=== PATIENT | male | born 1955 | race Caucasian/White ===

== ENCOUNTER 2016-04-15 14:51 | Inpatient (IN) | payer OTHER ==
[~2016-04-15] VITALS: Ht 190.5 cm; Wt 129.7 kg
[~2016-04-15 14:51] MED LIST: CELE20TA PO; FISH100020 PO; METF500 PO; MULTTAB67 PO; NOVO7030P2 SQ; POTA20TA5 PO; VITA10002 PO; VITA10007 PO; ZETI10TA5 PO; glucometer
[2016-04-15 14:53] VITALS: BP 134/74; PULSE 54; RESP 16; TEMP 97.8; O2SAT 97
[2016-04-15] MEDS ORDERED: SODIUM CHLORIDE 0.9% FLUSH 5 ML FLUSH IVF PRN (16:00)
[2016-04-15] MEDS ORDERED: ONDANSETRON HCL 4 MG/2 ML VIAL IVP ONE (16:00)
[2016-04-15] MEDS ORDERED: MORPHINE SULFATE 4 MG/ML INJ IV PUSH ONE (16:00)
--- NOTE | 2016-04-15 16:02 | PD ---
HPI . Right flank pain Chief Complaint: Flank/Kidney Pain Time Seen by Provider: 15:54 Travel History International Travel<30 days: No Contact w/Intl Traveler<30days: No Traveled to known affect area: No History of Present Illness HPI Patient presents with a one month history of right flank pain. He states that he saw his doctor for about 8-10 days ago probably had a kidney stone. He states that he was discharged from the doctor's office on amoxicillin. Patient also reports hematuria for the last 10 days. He states that his pain became acutely worse during the last 12 hours. He reports nausea, diaphoresis and continued hematuria. He denies associated fever. PFSH Past Medical History Arthritis: Yes (hands) Depression: Yes Cancer: Yes (MELANOMA 2004 toes) Cardiovascular Problems: No Diabetes: Yes Patient Takes Glucophage: No Diverticulitis: Yes Endocrine: Yes Genitourinary: No Hiatal Hernia: Yes Immune Disorder: No Implanted Vascular Access Dvce: Yes Musculoskeletal: Yes Neurologic: Yes (SKULL FRACTURE) Psychiatric: Yes Reproductive: No Respiratory: Yes Sleep Apnea: Yes (uses cpap at home) Thyroid Disease: No Past Surgical History Abdominal Surgery: Yes (HERNIA X3) Body Medical Devices: fully repaired knee 2013 Genitourinary Surgery: Yes (VASECTOMY) Tonsillectomy: Yes (ADENOIDS) Other Surgery: Yes Social History Alcohol Use: No Tobacco Use: No Substance Use: No Allergies-Medications (Allergen,Severity, Reaction): Coded Allergies: No Known Allergies (Unverified , 04/15/16) Reported Meds & Prescriptions Reported Meds & Active Scripts Active Phenergan (Promethazine HCl) 25 Mg Tab 25 Mg PO Q6H PRN Flomax (Tamsulosin HCl) 0.4 Mg Cap 0.4 Mg PO HS Percocet (Oxycodone-Acetaminophen) 5-325 mg Tab 1-2 Tab PO Q4H PRN [glucometer] Potassium Chloride Microencaps 20 Meq Tab 20 Meq PO Q12HR Glucophage (Metformin HCl) 500 Mg Tab 1,000 Mg PO BIDPC Novolin 70-30 Inj (Insulin Human Isoph/Insulin Regular) 1,000 Unit/10 Ml Vial 12 Units SQ BID@,17 Zetia (Ezetimibe) 10 Mg Tab 10 Mg PO DAILY Reported Fish Oil 1000 mg ([place]-3 Fatty Acids) 1 Cap Cap 2,000 Mg PO HS Vitamin B-12 (Cyanocobalamin) 1,000 Mcg Tab 1,000 Mcg PO HS Vitamin C (Ascorbic Acid) 1,000 Mg Tab 1,000 Mg PO HS Multiple Vitamin 1 Tab 1 Tab PO DAILY Celexa (Citalopram Hydrobromide) 20 Mg Tab 20 Mg PO HS Review of Systems Except as stated in HPI: all other systems reviewed are Neg General / Constitutional: Positive: Other (diaphoresis), No: Fever Gastrointestinal: Positive: Nausea Genitourinary: Positive: Hematuria, Flank Pain Physical Exam Narrative GENERAL: Patient is sitting on the side of the bed leaning to his left supported on the bedside table. He has obvious pain with movement. SKIN: Warm and dry. HEAD: Atraumatic. Normocephalic. EYES: Pupils equal and round. ENT: No nasal bleeding or discharge. Mucous membranes pink and moist. NECK: Trachea midline. CARDIOVASCULAR: Regular rate and rhythm. RESPIRATORY: No accessory muscle use. GASTROINTESTINAL: Abdomen soft. Obese. Diffuse right-sided tenderness. Nondistended. MUSCULOSKELETAL: No obvious deformities. No edema. Tenderness to percussion in the right CVA area. NEUROLOGICAL: Awake and alert. No obvious cranial nerve deficits. Motor grossly within normal limits. Normal speech. PSYCHIATRIC: Appropriate mood and affect; insight and judgment normal. Data Data Last Documented VS Vital Signs Date Time Temp Pulse Resp B/P Pulse Ox O2 Delivery O2 Flow Rate FiO2 04/15/16 16:18 53 18 120/73 99 Room Air 04/15/16 14:53 97.8 Orders Basic Metabolic Panel (Bmp) (04/15/16 15:55) Complete Blood Count With Diff (04/15/16 15:55) Ua Includes Microscopic (04/15/16 15:55) Ct Abd/Pel W/O Iv Contrast (04/15/16 15:55) Ondansetron Inj (Zofran Inj) (04/15/16 16:00) Sodium Chloride 0.9% Flush (Ns Flush) (04/15/16 16:00) Morphine Inj (Morphine Inj) (04/15/16 16:00) Sodium Chlor 0.9% 1000 Ml Inj (Ns 1000 M (04/15/16 17:45) Sodium Chlor 0.9% 1000 Ml Inj (Ns 1000 M (04/15/16 17:45) Ketorolac Inj (Toradol Inj) (04/15/16 17:45) Tamsulosin (Flomax) (04/15/16 17:45) Hydromorphone Pf Inj (Dilaudid Pf Inj) (04/15/16 17:45) Consult Urology (04/15/16 ) Admit To Inpatient (04/15/16 ) Code Status (04/15/16 18:20) Vital Signs (Adult) Q4H (04/15/16 18:20) Activity Oob With Assistance (04/15/16 18:20) Diet Heart Healthy (04/15/16 Dinner) Sodium Chloride 0.9% Flush (Ns Flush) (04/15/16 18:30) Sodium Chloride 0.9% Flush (Ns Flush) (04/15/16 21:00) Acetaminophen (Tylenol) (04/15/16 18:30) Bisacodyl Supp (Dulcolax Supp) (04/15/16 18:30) Magnesium Hydroxide Liq (Milk Of Magnesi (04/15/16 18:30) Chest, Single Ap (04/15/16 18:20) Electrocardiogram (04/15/16 18:20) Pt Request For Service (04/15/16 18:20) Scd Bilateral/Knee High TERI.BID (04/15/16 18:20) Naloxone Inj (Narcan Inj) (04/15/16 18:30) Inpatient Certification (04/15/16 ) Labs Laboratory Tests Test 04/15/16 04/15/16 16:06 16:47 White Blood Count 12.4 TH/MM3 Red Blood Count 4.36 MIL/MM3 Hemoglobin 13.9 GM/DL Hematocrit 38.8 % Mean Corpuscular Volume 89.0 FL Mean Corpuscular Hemoglobin 31.9 PG Mean Corpuscular Hemoglobin 35.8 % Concent Red Cell Distribution Width 13.2 % Platelet Count 189 TH/MM3 Mean Platelet Volume 7.6 FL Neutrophils (%) (Auto) 72.8 % Lymphocytes (%) (Auto) 16.9 % Monocytes (%) (Auto) 7.1 % Eosinophils (%) (Auto) 2.5 % Basophils (%) (Auto) 0.7 % Neutrophils # (Auto) 9.0 TH/MM3 Lymphocytes # (Auto) 2.1 TH/MM3 Monocytes # (Auto) 0.9 TH/MM3 Eosinophils # (Auto) 0.3 TH/MM3 Basophils # (Auto) 0.1 TH/MM3 CBC Comment DIFF FINAL Differential Comment Sodium Level 140 MEQ/L Potassium Level 4.3 MEQ/L Chloride Level 108 MEQ/L Carbon Dioxide Level 24.6 MEQ/L Anion Gap 7 MEQ/L Blood Urea Nitrogen 29 MG/DL Creatinine 1.48 MG/DL Estimat Glomerular Filtration 48 ML/MIN Rate Random Glucose 91 MG/DL Calcium Level 9.1 MG/DL Urine Color YELLOW Urine Turbidity CLEAR Urine pH 7.0 Urine Specific [place] 1.016 Urine Protein NEG mg/dL Urine Glucose (UA) NEG mg/dL Urine Ketones NEG mg/dL Urine Occult Blood MOD Urine Nitrite NEG Urine Bilirubin NEG Urine Urobilinogen LESS THAN 2.0 MG/DL Urine Leukocyte Esterase SMALL Urine RBC 118 /hpf Urine WBC 10 /hpf Urine Squamous Epithelial <1 /hpf Cells Urine Mucus FEW /lpf Microscopic Urinalysis Comment MDM Medical Decision Making Medical Screen Exam Complete: Yes Emergency Medical Condition: Yes Medical Record Reviewed: Yes (patient was seen here a couple months ago with new onset diabetes. He was hospitalized for a couple of days.) Differential Diagnosis Differential diagnosis of flank pain includes but is not limited to kidney stone , pyelonephritis, musculoskeletal pain, PE Narrative Course Patient presents for the evaluation of right flank pain and hematuria. The patient is noted to have significant pain with movement. CBC & BMP Diagram 04/15/16 16:06 Last Impressions Abdomen/Pelvis CT 04/15/16 1555 Signed Impressions: Service Date/Time: Friday, April 15, 2016 16:58 - CONCLUSION: 1. Cholelithiasis. 2. Diverticulosis. 3. There are bilateral proximal ureteral stones present with mild proximal hydroureter and hydronephrosis identified. On the right there is mild associated perinephric stranding. Cl Owusu MD The patient's renal function has worsened. After seeing the results of the CT, I discussed admission with the patient. He declines. I will give him some IV fluids and some more IV pain medication here. The patient has now changed his mind. He has agreed to be admitted to the hospital for further evaluation. Physician Communication Physician Communication Dr. Osuna will consult on the patient. Dr. العراقي will admit. Diagnosis Primary Impression: Bilateral ureteral calculi Additional Impressions: Bilateral hydronephrosis Cholelithiasis Qualified Code: K80.20 - Calculus of gallbladder without cholecystitis without obstruction Acute kidney injury Admitting Information Admitting Physician Requests: Admit Referrals: Rufus Osuna MD 3 days WITHOUT FAIL Patient Instructions: Gallstones (DC), General Instructions, Kidney Stones (DC) , Narcotic given in the ED Med/Other Pt SpecificInfo: Prescription(s) given Scripts Promethazine (Phenergan)25 Mg Tab25 Mg PO Q6H PRN (Nausea/Vomiting) #15 TAB Ref 0 Prov:Koki Hall MD 04/15/16 Tamsulosin (Flomax)0.4 Mg Cap0.4 Mg PO HS #30 CAP Ref 0 Prov:Koki Hall MD 04/15/16 Oxycodone-Acetaminophen (Percocet)5-325 mg Tab1-2 Tab PO Q4H PRN (PAIN) #15 TAB Ref 0 Prov:Koki Hall MD 04/15/16 Condition: Stable Koki Hall MD Apr 15, 2016 16:02
[2016-04-15 16:18] VITALS: BP 120/73; PULSE 53; RESP 18; O2SAT 99
[2016-04-15 16:39] LABS: BASOPHIL # 0.1 TH/MM3 (0-0.2); BASOPHIL % 0.7 % (0.0-2.0); EOSINOPHIL # 0.3 TH/MM3 (0-0.4); EOSINOPHIL % 2.5 % (0.0-4.0); HEMATOCRIT 38.8 % (39.0-51.0); HEMO FLAGS DIFF FINAL; LYMPH % 16.9 % (9.0-44.0); LYMPHOCYTE # 2.1 TH/MM3 (1.0-4.8); MEAN CORPUSCULAR HEMOGLOBIN 31.9 PG (27.0-34.0); MEAN CORPUSCULAR HGB CONC 35.8 % (32.0-36.0); MONO % 7.1 % (0.0-8.0); NEUT % 72.8 % (16.0-70.0); PLATELET COUNT 189 TH/MM3 (150-450); RED BLOOD COUNT 4.36 MIL/MM3 (4.50-5.90); RED CELL DISTRIBUTION WIDTH 13.2 % (11.6-17.2); WHITE BLOOD COUNT 12.4 TH/MM3 (4.0-11.0)
[2016-04-15 16:53] LABS: BICARBONATE 24.6 MEQ/L (21.0-32.0); POTASSIUM 4.3 MEQ/L (3.5-5.1)
--- NOTE | 2016-04-15 17:19 | RADRPT ---
EXAM DATE/TIME: 04/15/2016 16:58 [facility] COMPARISON: No previous studies available for comparison. INDICATIONS : Right flank pain, hematuria. ORAL CONTRAST: No oral contrast ingested. RADIATION DOSE: 17.05 CTDIvol (mGy) MEDICAL HISTORY : Diverticulitis. Hernia, umbilical. Diabetes mellitus type 2. SURGICAL HISTORY : Umbilical hernia repair. Vasectomy. ENCOUNTER: Initial ACUITY: 1 week PAIN SCALE: 9/10 LOCATION: Right flank TECHNIQUE: Volumetric scanning of the abdomen and pelvis was performed. Using automated exposure control and ad justment of the mA and/or kV according to patient size, radiation dose was kept as low as reasonably achievable to obtain optimal diagnostic quality images. FINDINGS: Cholelithiasis is noted with multiple calculi seen. Liver, spleen, pancreas, bilateral adrenal glands are unremarkable. There is mild hydronephrosis of the left kidney with a proximal left ureteral calc ulus identified measuring 6.4 mm on image 75. This is noted at the level of L4. The urinary bladder i s unremarkable. Prostatic calcifications are noted. There is mild right-sided hydronephrosis and mild perinephric stranding. There is a ureteral calculus noted on axial image #81 measuring 4 mm in trans verse dimension. This is at the level of L5. There is diastasis of the rectus abdominous musculature noted. Small fat-containing inguinal hernias. Scattered sigmoid and descending colonic diverticuli. N o adenopathy or aneurysm. Scattered atherosclerotic calcifications are seen. CONCLUSION: 1. Cholelithiasis. 2. Diverticulosis. 3. There are bilateral proximal ureteral stones present with mild proximal hydroureter and hydronephr osis identified. On the right there is mild associated perinephric stranding. Cl Owusu MD on April 15, 2016 at 17:15 Board Certified Radiologist. This report was verified electronically.
[2016-04-15 17:30] LABS: BLOOD, URINE MOD (NEG); GLUCOSE,URINE NEG (NEG); KETONE, URINE NEG (NEG); MUCUS URINE FEW /lpf (OCC); NITRITE,URINE NEG (NEG); SQUAMOUS EPITHELIAL CELL URINE <1 /hpf (0-5); URINE COLOR YELLOW (YELLW/STRAW)
[2016-04-15] MEDS ORDERED: SODIUM CHLOR 0.9% 1000 ML INJ 1,000 ML IV ONE ×2 (17:45)
[2016-04-15] MEDS ORDERED: TAMSULOSIN HCL 0.4 MG CAP PO ONE (17:45)
[2016-04-15] MEDS ORDERED: HYDROmorphone HCL PF 2 MG/ML VIAL IV PUSH ONE (17:45)
[2016-04-15] MEDS ORDERED: KETOROLAC TROMETHAMINE 30 MG/ML (IVP) VIAL IV PUSH ONE (17:45)
[2016-04-15] MEDS ORDERED: PERC5TAB12 PO (17:49)
[2016-04-15] MEDS ORDERED: PROM25TA5 PO (17:49)
[2016-04-15] MEDS ORDERED: TAMS5CAP PO (17:49)
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
[2016-04-15] MEDS ORDERED: SODIUM CHLORIDE 0.9% FLUSH 5 ML FLUSH FLUSH PRN (18:30)
[2016-04-15] MEDS ORDERED: ACETAMINOPHEN 325 MG TAB PO PRN (18:30)
[2016-04-15] MEDS ORDERED: MAGNESIUM HYDROXIDE SUSP 30 ML CUP PO PRN (18:30)
[2016-04-15] MEDS ORDERED: NALOXONE HCL 0.4 MG/ML AMP IV PRN (18:30)
[2016-04-15] MEDS ORDERED: ONDANSETRON HCL 4 MG/2 ML VIAL IV PUSH PRN (18:30)
[2016-04-15] MEDS ORDERED: BISACODYL 10 MG SUPP PR PRN (18:30)
[2016-04-15] MEDS ORDERED: ACETAMINOPHEN/HYDROcodone 325 MG/10 MG TAB PO PRN (18:30)
--- NOTE | 2016-04-15 18:59 | RADRPT ---
EXAM DATE/TIME: 04/15/2016 18:21 [facility] COMPARISON: No previous studies available for comparison. INDICATIONS : Patient complains of shortness of breath and bilateral flank pain. MEDICAL HISTORY : None. SURGICAL HISTORY : None. ENCOUNTER: Initial ACUITY: 1 day PAIN SCORE: 0/10 LOCATION: chest FINDINGS: There is cardiomegaly and linear scarring versus subsegmental atelectasis at the left lung base. Dege nerative changes of the spine are seen. No consolidation or effusion. CONCLUSION: No consolidation or effusion. Cl Owusu MD on April 15, 2016 at 18:57 Board Certified Radiologist. This report was verified electronically.
[2016-04-15] MEDS ORDERED: LORazepam 2 MG/ML VIAL IV PUSH PRN (19:00)
[2016-04-15] MEDS: 1/2 NS + KCL 20 MEQ INJ 1,000 ML IV SCH (19:07)
[2016-04-15 19:34] LABS: INDIRECT BILIRUBIN 0.4 MG/DL (0.0-0.8); TOTAL BILIRUBIN ADULT 0.5 MG/DL (0.2-1.0)
[2016-04-15 20:00] VITALS: BP 104/62; PULSE 53; RESP 14; O2SAT 95
--- NOTE | 2016-04-15 20:15 | RADRPT ---
EXAM DATE/TIME: 04/15/2016 19:29 [facility] COMPARISON: CT ABDOMEN & PELVIS W/O CONTRAST, April 15, 2016, 16:58. INDICATIONS : Right upper quadrant pain. MEDICAL HISTORY : Diverticulitis. Skull fracture. Sleep apnea. Hiatal hernia. Arthritis. Diabetes. Depression. Emma noma to toes. Measles. Blood transfusion. SURGICAL HISTORY : Tonsillectomy. Hernia repairs. Toe amputations. Right knee replacement. Vasectomy. ENCOUNTER: Initial ACUITY: 1 week PAIN SCORE: 5/10 LOCATION: Right upper quadrant MEASUREMENTS: LIVER: 22.8 cm length COMMON DUCT: 7 mm RIGHT KIDNEY: 13.7 x 6.5 x 5.3 cm FINDINGS: LIVER: Normal echotexture without focal lesion or ductal dilatation. COMMON DUCT: No intraluminal mass or stone visualized. GALLBLADDER: Cholelithiasis. No wall thickening or pericholecystic fluid. PANCREAS: The visualized portions are within normal limits. RIGHT KIDNEY: Mild right-sided hydronephrosis. CONCLUSION: Cholelithiasis. Hepatomegaly. Mild right-sided hydronephrosis. Cl Owusu MD on April 15, 2016 at 20:12 Board Certified Radiologist. This report was verified electronically.
[2016-04-15] MEDS: EZETIMIBE 10 MG TAB PO SCH (20:48)
[2016-04-15] MEDS: TAMSULOSIN HCL 0.4 MG CAP PO SCH (20:48)
[2016-04-15] MEDS: PIPERACIL-TAZO 4.5 GM PREMIX 100 ML IV SCH (20:48)
[2016-04-15] MEDS: CITALOPRAM HYDROBROMIDE 20 MG TAB PO SCH (20:48)
[2016-04-15] MEDS: INSULIN ASPART SUPPLEMENTAL SCALE SQ SCH (20:51)
[2016-04-15] MEDS: SODIUM CHLORIDE 0.9% FLUSH 5 ML FLUSH FLUSH SCH (21:00)
[2016-04-15 21:06] LABS: MEAN CORPUSCULAR HGB CONC 36.1 % (32.0-36.0)
[2016-04-15] MEDS: HYDROmorphone HCL PF 1 MG/ML VIAL IV PUSH PRN (21:40)
[2016-04-15 22:00] VITALS: BP 130/82; PULSE 59; RESP 18; TEMP 97.3; O2SAT 97
[2016-04-16] VITALS: BP 109/57; PULSE 48; RESP 18; TEMP 97.5; O2SAT 94
[2016-04-16] MEDS: PIPERACIL-TAZO 4.5 GM PREMIX 100 ML IV SCH ×4 (02:00→20:53)
[2016-04-16] MEDS: HYDROmorphone HCL PF 1 MG/ML VIAL IV PUSH PRN ×4 (03:40→22:52)
[2016-04-16] MEDS: 1/2 NS + KCL 20 MEQ INJ 1,000 ML IV SCH ×4 (03:41→22:00)
[2016-04-16 04:00] VITALS: BP 120/63; PULSE 53; RESP 18; TEMP 97.7; O2SAT 94
[2016-04-16] MEDS: INSULIN ASPART SUPPLEMENTAL SCALE SQ SCH ×4 (05:03→20:54)
[2016-04-16] MEDS: SODIUM CHLORIDE 0.9% FLUSH 5 ML FLUSH FLUSH SCH ×2 (08:11→20:53)
[2016-04-16] MEDS: EZETIMIBE 10 MG TAB PO SCH (08:11)
[2016-04-16 08:27] VITALS: BP 105/57; PULSE 51; RESP 18; TEMP 97.6; O2SAT 93
[2016-04-16 08:55] LABS: AUTOMATED NEUTROPHIL # 6.8 TH/MM3 (1.8-7.7); BASOPHIL # 0.1 TH/MM3 (0-0.2); BASOPHIL % 0.8 % (0.0-2.0); EOSINOPHIL # 0.3 TH/MM3 (0-0.4); EOSINOPHIL % 3.3 % (0.0-4.0); HEMATOCRIT 36.7 % (39.0-51.0); LYMPH % 19.5 % (9.0-44.0); LYMPHOCYTE # 1.9 TH/MM3 (1.0-4.8); MEAN CORPUSCULAR HEMOGLOBIN 32.2 PG (27.0-34.0); NEUT % 69.4 % (16.0-70.0); PLATELET COUNT 165 TH/MM3 (150-450); RED BLOOD COUNT 4.12 MIL/MM3 (4.50-5.90); RED CELL DISTRIBUTION WIDTH 13.1 % (11.6-17.2); WHITE BLOOD COUNT 9.8 TH/MM3 (4.0-11.0)
[2016-04-16 09:01] LABS: HEMO FLAGS AUTO DIFF
[2016-04-16 09:22] LABS: BICARBONATE 26.1 MEQ/L (21.0-32.0); MAGNESIUM 1.9 MG/DL (1.5-2.5); POTASSIUM 4.1 MEQ/L (3.5-5.1)
[2016-04-16 09:43] LABS: SCAN/DIFF AUTO DIFF CONFIRMED
--- NOTE | 2016-04-16 11:13 | PD.CONS ---
HPI Service Urology Consult Requested By Reason for Consult Bilateral ureteral calculi Primary Care Physician Jan Lawrence MD Diagnosis: (1) Bilateral hydronephrosis ICD Code: N13.30 (2) Bilateral ureteral calculi ICD Code: N20.1 (3) Acute kidney injury ICD Code: N17.9 (4) Cholelithiasis ICD Code: K80.20 (5) DM2 (diabetes mellitus, type 2) ICD Code: E11.9 (6) BPH (benign prostatic hyperplasia) ICD Code: N40.0 (7) Depression ICD Code: F32.9 History of Present Illness 60-year-old gentleman with history diabetes mellitus who presented to the emergency room with worsening right sided flank pain. Patient reports that he has been experiencing right flank pain on and off for the past several months however recently it has increased in intensity. Preliminary workup in the emergency room included a CT scan stone protocol that demonstrated bilateral proximal ureteral calculi measuring 4 mm on the right and 6 mm on the left causing mild bilateral hydronephrosis. Also noted was some perinephric stranding on the patient's right side. Other CT findings included gallstones. At the time of consultation the patient reported symptomatic improvement with analgesic medication. He denies a history of renal calculi in the past. He denies dysuria but has recently noted intermittent reddish discoloration to his urine. He denies any change in his urine output. Review of Systems Constitutional: DENIES: Fever, Chills Gastrointestinal: COMPLAINS OF: Abdominal pain (right side), Nausea, DENIES: Vomiting Genitourinary: COMPLAINS OF: Hematuria, DENIES: Urgency, Dysuria Musculoskeletal: COMPLAINS OF: Back pain (right flank) Except as stated in HPI: all other systems reviewed are Neg Past Family Social History Past Medical History BPH Diabetes mellitus Hyperlipidemia Obstructive sleep apnea Depression Past Surgical History Vasectomy T&A Knee surgery Herniorrhaphy 3 Reported Medications Refer to EMR Allergies: Coded Allergies: No Known Allergies (Unverified , 04/15/16) Active Ordered Medications Refer to EMR Family History Reviewed and noncontributory Social History Denies tobacco, alcohol or intravenous drug abuse Physical Exam Vital Signs Vital Signs Date Time Temp Pulse Resp B/P Pulse Ox O2 Delivery O2 Flow Rate FiO2 04/16/16 08:27 97.6 51 18 105/57 93 3/5/17 04:00 97.7 53 18 120/63 94 04/16/16 00:00 97.5 48 18 109/57 94 04/15/16 22:00 97.3 59 18 130/82 97 04/15/16 20:00 53 14 104/62 95 Room Air 04/15/16 16:18 53 18 120/73 99 Room Air 04/15/16 15:41 18 04/15/16 14:53 97.8 54 16 134/74 97 Physical Exam GENERAL: This is a well-nourished, well-developed patient, in no apparent distress. SKIN: No rashes, ecchymoses or lesions. Cool and dry. HEAD: Atraumatic. Normocephalic. No temporal or scalp tenderness. EYES: Pupils equal round and reactive. Extraocular motions intact. No scleral icterus. No injection or drainage. ENT: Nose without bleeding, purulent drainage or septal hematoma. Throat without erythema, tonsillar hypertrophy or exudate. Uvula midline. Airway patent. NECK: Trachea midline. No JVD or lymphadenopathy. Supple, nontender, no meningeal signs. CARDIOVASCULAR: Regular rate and rhythm without murmurs, gallops, or rubs. RESPIRATORY: Clear to auscultation. Breath sounds equal bilaterally. No wheezes , rales, or rhonchi. GASTROINTESTINAL: Abdomen soft, non-tender, nondistended. No hepato-splenomegaly , or palpable masses. No guarding. GENITOURINARY: No CVA tenderness MUSCULOSKELETAL: Extremities without clubbing, cyanosis, or edema. No joint tenderness, effusion, or edema noted. No calf tenderness. Negative Homans sign bilaterally. NEUROLOGICAL: Awake and alert. Cranial nerves II through XII intact. Motor and sensory grossly within normal limits. Five out of 5 muscle strength in all muscle groups. Normal speech. Laboratory Laboratory Tests Test 04/15/16 04/15/16 04/16/16 16:06 16:47 08:09 White Blood Count 12.4 9.8 Red Blood Count 4.36 4.12 Hemoglobin 13.9 13.3 Hematocrit 38.8 36.7 Mean Corpuscular Volume 89.0 89.0 Mean Corpuscular Hemoglobin 31.9 32.2 Mean Corpuscular Hemoglobin 35.8 36.1 Concent Red Cell Distribution Width 13.2 13.1 Platelet Count 189 165 Mean Platelet Volume 7.6 7.6 Neutrophils (%) (Auto) 72.8 69.4 Lymphocytes (%) (Auto) 16.9 19.5 Monocytes (%) (Auto) 7.1 7.0 Eosinophils (%) (Auto) 2.5 3.3 Basophils (%) (Auto) 0.7 0.8 Neutrophils # (Auto) 9.0 6.8 Lymphocytes # (Auto) 2.1 1.9 Monocytes # (Auto) 0.9 0.7 Eosinophils # (Auto) 0.3 0.3 Basophils # (Auto) 0.1 0.1 CBC Comment DIFF FINAL AUTO DIFF Differential Comment AUTO DIFF CONFIRMED Sodium Level 140 143 Potassium Level 4.3 4.1 Chloride Level 108 108 Carbon Dioxide Level 24.6 26.1 Anion Gap 7 9 Blood Urea Nitrogen 29 26 Creatinine 1.48 1.58 Estimat Glomerular Filtration 48 45 Rate Random Glucose 91 95 Calcium Level 9.1 8.3 Total Bilirubin 0.5 Direct Bilirubin 0.1 Indirect Bilirubin 0.4 Aspartate Amino Transf 24 (AST/SGOT) Alanine Aminotransferase 24 (ALT/SGPT) Alkaline Phosphatase 42 Total Protein 7.3 Albumin 4.1 Lipase 114 Urine Color YELLOW Urine Turbidity CLEAR Urine pH 7.0 Urine Specific [place] 1.016 Urine Protein NEG Urine Glucose (UA) NEG Urine Ketones NEG Urine Occult Blood MOD Urine Nitrite NEG Urine Bilirubin NEG Urine Urobilinogen LESS THAN 2.0 Urine Leukocyte Esterase SMALL Urine RBC 118 Urine WBC 10 Urine Squamous Epithelial <1 Cells Urine Mucus FEW Microscopic Urinalysis Comment Magnesium Level 1.9 Result Diagram: 04/16/16 0809 04/16/[address] scan with findings as outlined above Assessment and Plan Assessment and Plan Urologic impression: #1 symptoms of right flank and abdominal pain most likely related to the obstructing right proximal ureteral stone given the fact that there is hydronephrosis and perinephric stranding. #2 bilateral partially obstructing proximal ureteral calculi Recommendations: #1 agree with present analgesic support #2 keep patient nothing by mouth after midnight #3 schedule for cystoscopy, allow retrograde pyelogram studies and bilateral ureteral stent placement for tomorrow #4 anticipate discharge home tomorrow after stents placed #5 discussed subsequent outpatient shockwave lithotripsy with patient Problem Qualifiers (1) Cholelithiasis: Qualified Code: K80.20 - Calculus of gallbladder without cholecystitis without obstruction (2) DM2 (diabetes mellitus, type 2): Qualified Code: E11.8 - Type 2 diabetes mellitus with complication, without long-term current use of insulin (3) Depression: Qualified Code: F32.9 - Depression, unspecified depression type Rufus Osuna MD Apr 16, 2016 11:13
[2016-04-16 12:02] VITALS: BP 126/77; PULSE 50; RESP 18; TEMP 98; O2SAT 94
--- NOTE | 2016-04-16 13:39 | PD.CONS ---
General Surgery Consult Gen. surgery consultation: I was asked to see the patient for evaluation of cholelithiasis. He is a 60- year-old gentleman who has had intermittent pain in the right flank for approximately 1 year. Over the last several months it has become much worse, much more frequent and has been associated more recently with gross hematuria on several occasions. The pain became markedly worse in the last 24 hours and he was admitted to the hospital through the emergency department. He has been found to have bilateral ureteral calculi with hydronephrosis. There is also noted to be stranding around the right kidney suggestive of possibly early pyelonephritis. Last 48 hours Impressions Chest X-Ray 04/15/16 1820 Signed Impressions: Service Date/Time: Friday, April 15, 2016 18:21 - CONCLUSION: No consolidation or effusion. Cl Owusu MD Abdomen/Pelvis CT 04/15/16 1555 Signed Impressions: Service Date/Time: Friday, April 15, 2016 16:58 - CONCLUSION: 1. Cholelithiasis. 2. Diverticulosis. 3. There are bilateral proximal ureteral stones present with mild proximal hydroureter and hydronephrosis identified. On the right there is mild associated perinephric stranding. Cl Owusu MD Gall Bladder Ultrasound 04/15/16 0000 Signed Impressions: Service Date/Time: Friday, April 15, 2016 19:29 - CONCLUSION: Cholelithiasis. Hepatomegaly. Mild right-sided hydronephrosis. Cl Owusu MD Past medical history/family history/social history/review of systems/ medications and allergies are all well documented in the remainder of the chart. Vital Signs Date Time Temp Pulse Resp B/P Pulse Ox O2 Delivery O2 Flow Rate FiO2 04/16/16 12:02 98.0 50 18 126/77 94 04/16/16 08:27 97.6 51 18 105/57 93 04/16/16 08:00 Room Air 04/16/16 04:00 97.7 53 18 120/63 94 04/16/16 00:00 97.5 48 18 109/57 94 04/15/16 22:00 97.3 59 18 130/82 97 04/15/16 20:00 53 14 104/62 95 Room Air 04/15/16 16:18 53 18 120/73 99 Room Air 04/15/16 15:41 18 04/15/16 14:53 97.8 54 16 134/74 97 I Laboratory Tests Test 04/15/16 04/15/16 04/16/16 16:06 16:47 08:09 White Blood Count 12.4 TH/MM3 9.8 TH/MM3 Red Blood Count 4.36 MIL/MM3 4.12 MIL/MM3 Hemoglobin 13.9 GM/DL 13.3 GM/DL Hematocrit 38.8 % 36.7 % Mean Corpuscular Volume 89.0 FL 89.0 FL Mean Corpuscular Hemoglobin 31.9 PG 32.2 PG Mean Corpuscular Hemoglobin 35.8 % 36.1 % Concent Red Cell Distribution Width 13.2 % 13.1 % Platelet Count 189 TH/MM3 165 TH/MM3 Mean Platelet Volume 7.6 FL 7.6 FL Neutrophils (%) (Auto) 72.8 % 69.4 % Lymphocytes (%) (Auto) 16.9 % 19.5 % Monocytes (%) (Auto) 7.1 % 7.0 % Eosinophils (%) (Auto) 2.5 % 3.3 % Basophils (%) (Auto) 0.7 % 0.8 % Neutrophils # (Auto) 9.0 TH/MM3 6.8 TH/MM3 Lymphocytes # (Auto) 2.1 TH/MM3 1.9 TH/MM3 Monocytes # (Auto) 0.9 TH/MM3 0.7 TH/MM3 Eosinophils # (Auto) 0.3 TH/MM3 0.3 TH/MM3 Basophils # (Auto) 0.1 TH/MM3 0.1 TH/MM3 CBC Comment DIFF FINAL AUTO DIFF Differential Comment AUTO DIFF CONFIRMED Sodium Level 140 MEQ/L 143 MEQ/L Potassium Level 4.3 MEQ/L 4.1 MEQ/L Chloride Level 108 MEQ/L 108 MEQ/L Carbon Dioxide Level 24.6 MEQ/L 26.1 MEQ/L Anion Gap 7 MEQ/L 9 MEQ/L Blood Urea Nitrogen 29 MG/DL 26 MG/DL Creatinine 1.48 MG/DL 1.58 MG/DL Estimat Glomerular Filtration 48 ML/MIN 45 ML/MIN Rate Random Glucose 91 MG/DL 95 MG/DL Calcium Level 9.1 MG/DL 8.3 MG/DL Total Bilirubin 0.5 MG/DL Direct Bilirubin 0.1 MG/DL Indirect Bilirubin 0.4 MG/DL Aspartate Amino Transf 24 U/L (AST/SGOT) Alanine Aminotransferase 24 U/L (ALT/SGPT) Alkaline Phosphatase 42 U/L Total Protein 7.3 GM/DL Albumin 4.1 GM/DL Lipase 114 U/L Urine Color YELLOW Urine Turbidity CLEAR Urine pH 7.0 Urine Specific [place] 1.016 Urine Protein NEG mg/dL Urine Glucose (UA) NEG mg/dL Urine Ketones NEG mg/dL Urine Occult Blood MOD Urine Nitrite NEG Urine Bilirubin NEG Urine Urobilinogen LESS THAN 2.0 MG/DL Urine Leukocyte Esterase SMALL Urine RBC 118 /hpf Urine WBC 10 /hpf Urine Squamous Epithelial <1 /hpf Cells Urine Mucus FEW /lpf Microscopic Urinalysis Comment Magnesium Level 1.9 MG/DL Impression: 60-year-old gentleman with bilateral ureteral calculi and hydronephrosis with stranding around the right kidney. He was also noted on ultrasound to have cholelithiasis with an otherwise normal-appearing gallbladder without any gallbladder wall thickening, pericholecystic fluid, or common bile duct dilatation. In view of the fact that he cannot relate any food intolerances which cause pain, I doubt that he has any evidence of symptomatic cholelithiasis. His symptoms are completely explained by the renal findings. Plan: The patient is going to be taken to the operating room tomorrow by Dr. Osuna for placement of bilateral ureteral stents and possible lithotripsy in the future. From my standpoint it is fine to discharge him anytime it is okay with urology. I plan to see him back in my office in 4-6 weeks to reevaluate him from the standpoint of his known gallbladder disease. Orestes Clarke MD Apr 16, 2016 13:39
--- NOTE | 2016-04-16 14:23 | HHI.PR ---
Subjective Remarks No new complaints. Objective Vitals Vital Signs Date Time Temp Pulse Resp B/P Pulse Ox O2 Delivery O2 Flow Rate FiO2 04/16/16 12:02 98.0 50 18 126/77 94 04/16/16 08:27 97.6 51 18 105/57 93 04/16/16 08:00 Room Air 04/16/16 04:00 97.7 53 18 120/63 94 04/16/16 00:00 97.5 48 18 109/57 94 04/15/16 22:00 97.3 59 18 130/82 97 04/15/16 20:00 53 14 104/62 95 Room Air 04/15/16 16:18 53 18 120/73 99 Room Air 04/15/16 15:41 18 04/15/16 14:53 97.8 54 16 134/74 97 04/15/16 04/15/16 04/16/16 15:00 23:00 07:00 Intake Total 240 ml 240 ml Balance 240 ml 240 ml Intake Oral 240 ml 240 ml # Voids 0 1 # Bowel Movements 0 Result Diagram: 04/16/16 0809 04/16/16 0809 Imaging Last Impressions Chest X-Ray 04/15/16 1820 Signed Impressions: Service Date/Time: Friday, April 15, 2016 18:21 - CONCLUSION: No consolidation or effusion. Cl Owusu MD Abdomen/Pelvis CT 04/15/16 1555 Signed Impressions: Service Date/Time: Friday, April 15, 2016 16:58 - CONCLUSION: 1. Cholelithiasis. 2. Diverticulosis. 3. There are bilateral proximal ureteral stones present with mild proximal hydroureter and hydronephrosis identified. On the right there is mild associated perinephric stranding. Cl Owusu MD Gall Bladder Ultrasound 04/15/16 0000 Signed Impressions: Service Date/Time: Friday, April 15, 2016 19:29 - CONCLUSION: Cholelithiasis. Hepatomegaly. Mild right-sided hydronephrosis. Cl Owusu MD Objective Remarks GENERAL: This is a well-nourished, well-developed patient, in no apparent distress. CARDIOVASCULAR: Regular rate and rhythm without murmurs, gallops, or rubs. RESPIRATORY: Clear to auscultation. Breath sounds equal bilaterally. No wheezes , rales, or rhonchi. GASTROINTESTINAL: RUQ tender, +BS x 4, no g/r/r MUSCULOSKELETAL: Extremities without clubbing, cyanosis, or edema. NEURO: Alert & Oriented x4 to person, place, time, situation. Moves all ext x4 A/P Problem List: (1) Bilateral hydronephrosis Status: Acute Plan: - comgmt with Urology - CT Abd/pelvis (04/15/16) 1. Cholelithiasis. 2. Diverticulosis. 3. There are bilateral proximal ureteral stones present with mild proximal hydroureter and hydronephrosis identified. On the right there is mild associated perinephric stranding - Case d/w Dr. Osuna (04/16/16) - anticipate Cystoscopy with b/l ureteral stents 04/17 - IVFs - lortab/dilaudid prn - repeat BMP & CBC in AM (2) Bilateral ureteral calculi Status: Acute Plan: - see above (3) Acute kidney injury Status: Acute Plan: - continue IVFs (4) Cholelithiasis Status: Acute Plan: - Comgmt with General Surgery - possible cholecystitis - zosyn - IVFs - zofran prn - lortab/dilaudid prn - - abdominal pain possibly d/t hydronephrosis - Surgery wants pt to f/u in the office in 6 weeks (5) DM2 (diabetes mellitus, type 2) Status: Chronic Plan: - hold OHA - SSI (6) BPH (benign prostatic hyperplasia) Status: Acute Plan: - flomax (7) Depression Status: Acute Plan: - celexa Problem Qualifiers (1) Cholelithiasis: Qualified Code: K80.20 - Calculus of gallbladder without cholecystitis without obstruction (2) DM2 (diabetes mellitus, type 2): Qualified Code: E11.8 - Type 2 diabetes mellitus with complication, without long-term current use of insulin (3) Depression: Qualified Code: F32.9 - Depression, unspecified depression type Harry العراقي DO Apr 16, 2016 14:23
--- NOTE | 2016-04-16 14:26 | EKG ---
Date Performed: 04/15/2016 Time Performed: 18:30:47 PTAGE: 60 years EKG: SINUS BRADYCARDIA BORDERLINE ECG Compared to prior tracing no significant change PREVIOUS TRACING : 02/01/2016 13.56 DOCTOR: Jose Miguel Parnell Interpretating Date/Time 04/16/2016 14:24:50
[2016-04-16 16:14] VITALS: BP 120/63; PULSE 50; RESP 18; TEMP 98; O2SAT 95
[2016-04-16 20:00] VITALS: BP 134/77; PULSE 54; RESP 18; TEMP 98.3; O2SAT 97
[2016-04-16] MEDS: TAMSULOSIN HCL 0.4 MG CAP PO SCH (20:53)
[2016-04-16] MEDS: CITALOPRAM HYDROBROMIDE 20 MG TAB PO SCH (20:53)
[2016-04-17] VITALS: BP 139/71; PULSE 50; RESP 18; TEMP 98; O2SAT 95
[2016-04-17] MEDS: PIPERACIL-TAZO 4.5 GM PREMIX 100 ML IV SCH ×3 (02:33→15:45)
[2016-04-17 04:47] VITALS: BP 150/87; PULSE 47; RESP 18; TEMP 98.1; O2SAT 95
[2016-04-17] MEDS: HYDROmorphone HCL PF 1 MG/ML VIAL IV PUSH PRN ×2 (05:23→11:37)
[2016-04-17] MEDS: INSULIN ASPART SUPPLEMENTAL SCALE SQ SCH ×3 (05:37→16:00)
[2016-04-17 08:00] VITALS: BP 138/82; PULSE 56; RESP 18; TEMP 98.6; O2SAT 96
[2016-04-17] MEDS: SODIUM CHLORIDE 0.9% FLUSH 5 ML FLUSH FLUSH SCH (08:18)
[2016-04-17] MEDS: EZETIMIBE 10 MG TAB PO SCH (08:18)
--- NOTE | 2016-04-17 09:09 | RADRPT ---
EXAM DATE/TIME: 04/17/2016 08:47 [facility] COMPARISON: CT ABDOMEN & PELVIS W/O CONTRAST, April 15, 2016, 16:58. INDICATIONS : Right flank pain. MEDICAL HISTORY : Renal calculi. Diverticulitis. Skull fracture. Sleep apnea. Hiatal hernia. Arthritis. Diabetes. SURGICAL HISTORY : Tonsillectomy. Hernia repairs. Toe amputations. Right knee replacement. Vasectomy. ENCOUNTER: Initial ACUITY: 1 week PAIN SCORE: 10/10 LOCATION: Right flank FINDINGS: 2 supine frontal views of the abdomen demonstrate no abnormal densities overlying the kidneys. The ri ght kidney is partially obscured by overlying bowel gas and stool. There is an ovoid density projecti ng just superior to the left L4 transverse process that measures 1.1 x 0.5 cm. This corresponds with the left ureteral stone documented on CT from 2 days ago. No = right ureteral stone is identified. No abnormal densities are visualized within the pelvis. The There is a nonobstructive pattern. No organomegaly is appreciated. Degenerative changes are present w ithin the lumbar spine. CONCLUSION: 1. The left ureteral stone removed is visualized adjacent to the L4 transverse process. It measures 1 1 x 5 mm. It has not changed location when compared to the CT from 2 days ago. 2. No renal stones are seen and no right ureteral stone is visualized. The small stone visualized in the right ureter on the prior study may be too small to visualize with plain film imaging. Stephan Weiner MD on April 17, 2016 at 8:56 Board Certified Radiologist. This report was verified electronically.
--- NOTE | 2016-04-17 09:20 | HHI.PR ---
Subjective Remarks still with right flank pains Objective Vitals heart reg lung cta abd s/nt ext no edema Vital Signs Date Time Temp Pulse Resp B/P Pulse Ox O2 Delivery O2 Flow Rate FiO2 04/17/16 04:47 98.1 47 18 150/87 95 04/17/16 00:00 98.0 50 18 139/71 95 04/16/16 20:15 Room Air 04/16/16 20:00 98.3 54 18 134/77 97 04/16/16 16:14 98.0 50 18 120/63 95 04/16/16 12:02 98.0 50 18 126/77 94 04/16/16 04/16/16 04/17/16 15:00 23:00 07:00 Intake Total 1877 ml 1580 ml 1124 ml Balance 1877 ml 1580 ml 1124 ml Intake Oral 720 ml 480 ml IV Total 1157 ml 1100 ml 1124 ml # Voids 3 8 1 # Bowel Movements 0 1 0 Result Diagram: 04/16/16 0809 04/16/16 0809 Imaging Last Impressions Chest X-Ray 04/15/16 1820 Signed Impressions: Service Date/Time: Friday, April 15, 2016 18:21 - CONCLUSION: No consolidation or effusion. Cl Owusu MD Abdomen/Pelvis CT 04/15/16 1555 Signed Impressions: Service Date/Time: Friday, April 15, 2016 16:58 - CONCLUSION: 1. Cholelithiasis. 2. Diverticulosis. 3. There are bilateral proximal ureteral stones present with mild proximal hydroureter and hydronephrosis identified. On the right there is mild associated perinephric stranding. Cl Owusu MD Gall Bladder Ultrasound 04/15/16 0000 Signed Impressions: Service Date/Time: Friday, April 15, 2016 19:29 - CONCLUSION: Cholelithiasis. Hepatomegaly. Mild right-sided hydronephrosis. Cl Owusu MD A/P Problem List: (1) Bilateral hydronephrosis Status: Acute Plan: - CT Abd/pelvis (04/15/16) 1. Cholelithiasis. 2. Diverticulosis. 3. There are bilateral proximal ureteral stones present with mild proximal hydroureter and hydronephrosis identified. On the right there is mild associated perinephric stranding - Urology consulted and Cystoscopy with b/l ureteral stents planned for today - IVFs. monitor renal function. - lortab/dilaudid prn (2) Bilateral ureteral calculi Status: Acute Plan: - see above (3) Acute kidney injury Status: Acute Plan: - continue IVFs (4) Cholelithiasis Status: Acute Plan: - seen by gen surg. not felt to be cholecystitis. f/u clinic for cholelithiasis. (5) DM2 (diabetes mellitus, type 2) Status: Chronic Plan: - hold OHA - SSI (6) BPH (benign prostatic hyperplasia) Status: Chronic Plan: - flomax (7) Depression Status: Chronic Plan: - celexa Problem Qualifiers (1) Cholelithiasis: Qualified Code: K80.20 - Calculus of gallbladder without cholecystitis without obstruction (2) DM2 (diabetes mellitus, type 2): Qualified Code: E11.8 - Type 2 diabetes mellitus with complication, without long-term current use of insulin (3) Depression: Qualified Code: F32.9 - Depression, unspecified depression type Brad Patel MD Apr 17, 2016 09:20
[2016-04-17] MEDS ORDERED: ONDANSETRON HCL 4 MG/2 ML VIAL IV PUSH ONE (09:36)
[2016-04-17] MEDS ORDERED: ePHEDrine/NS 25 MG/5 ML SYR IV ONE (09:36)
[2016-04-17] MEDS ORDERED: LACTATED RINGER'S 1000 ML INJ 1,000 ML IV ONE (09:36)
[2016-04-17] MEDS ORDERED: PROPOFOL 200 MG/20 ML AMP IV ONE (09:36)
[2016-04-17] MEDS: 1/2 NS + KCL 20 MEQ INJ 1,000 ML IV SCH (11:28)
[2016-04-17 12:41] VITALS: BP 136/80; PULSE 58; RESP 18; TEMP 98.4; O2SAT 95
[2016-04-17 13:11] LABS: BICARBONATE 25.8 MEQ/L (21.0-32.0)
[2016-04-17] MEDS ORDERED: ACETAMINOPHEN 1000 MG/100 ML VIAL IV ONE (13:43)
[2016-04-17] MEDS ORDERED: FAMOTIDINE 20 MG/2 ML VIAL ONE (13:43)
[2016-04-17] MEDS ORDERED: DICLOFENAC SODIUM 37.5 MG/ML VIAL IV PUSH ONE (13:43)
[2016-04-17] MEDS ORDERED: MIDAZOLAM HCL 2 MG/2 ML VIAL ONE (13:43)
[2016-04-17] MEDS ORDERED: DEXAMETHASONE SOD PHOS 4 MG/ML VIAL ONE (13:44)
[2016-04-17] MEDS ORDERED: fentaNYL CITRATE 250 MCG/5 ML AMP ONE (13:44)
--- NOTE | 2016-04-17 14:42 | HHI.DCPOC ---
Discharge Care Plan Diagnosis: (1) Bilateral ureteral calculi (2) Acute kidney injury (3) Bilateral hydronephrosis (4) Cholelithiasis (5) DM2 (diabetes mellitus, type 2) (6) BPH (benign prostatic hyperplasia) Goals to Promote Your Health * To prevent worsening of your condition and complications * To maintain your health at the optimal level Directions to Meet Your Goals Take your medications as prescribed Follow your dietary instruction Follow activity as directed Keep your appointments as scheduled Take your immunizations and boosters as scheduled If your symptoms worsen call your PCP, if no PCP go to Urgent Care Center or Emergency Room Smoking is Dangerous to Your Health. Avoid second hand smoke Call the 24-hour hour crisis hotline for domestic abuse at Brad Patel MD Apr 17, 2016 14:41
[2016-04-17] MEDS ORDERED: IOHEXOL 300 MG/ML 50 ML BTL (for RAD DIAG) OTHER ONE (14:53)
--- NOTE | 2016-04-17 15:33 | PD.OP ---
Operative Report Date of Surgery: Apr 17, 2016 Preoperative Diagnosis: (1) Bilateral ureteral calculi Postoperative Diagnosis: (1) Bilateral ureteral calculi Procedure: Cystoscopy, bilateral retrograde pyelogram studies and bilateral ureteral stent placement. Anesthesia: General Surgeon: Rufus Osuna Olericulturist(s): None Operation and Findings: Indication for procedure: Case of a pleasant 60-year-old gentleman with bilateral proximal ureteral calculi. Operative procedure in detail. Patient was brought to the operating room suite and placed supine on the cystoscopy table. He was then placed under general anesthesia. He was then repositioned in the dorsolithotomy position and prepped and draped in normal sterile fashion. After an appropriate timeout was undertaken I proceeded with cystoscopic evaluation utilizing the rigid cystoscope with a 20 [place] sheath and a 30 lens. The urethra was patent without stricture formation the prostatic urethra was nonobstructing. Further passive cystoscope within the urinary bladder via both right and left ureteral orifices to be in correct anatomic position. There was sluggish reflux of urine noted bilaterally. I then proceeded with utilizing 6 [place] open-ended ureteral catheter and performed a right retrograde pyelogram study. Patient was noted to have an approximately 4 mm obstructing right proximal ureteral calculus. I was then able to advance a sensor 0.035 wire through the open- ended catheter around the stone and up into the right renal pelvis. The open- ended catheter was then exchanged for a 6 [place] 26 cm double-J stent. The stent was passed under both cystoscopic and fluoroscopic guidance without difficulty. Once the stent was in proper position the trailing string was removed. Next I proceeded with the contralateral side. In similar fashion a left retrograde study was performed and this time there was an obstructing 6 mm proximal stone noted. Once again a sensor 0.35 wire was able to be negotiated around the stone and the open-ended catheter was then exchanged for a 6 [place] 26 cm double-J stent under both cystoscopic and fluoroscopic guidance. The trailing string was then removed. A 16 [place] 10 cc Mcclellan catheter was then placed and connected to gravity drainage. The patient tolerated the procedures without complications and was transferred to the PACU in satisfactory condition. It is anticipated that the patient will be discharged home later today and have her ranges made for outpatient extracorporeal shockwave lithotripsy. Rufus Osuna MD Apr 17, 2016 15:33
[2016-04-17] MEDS ORDERED: PERC5TAB12 PO (15:35)
[2016-04-17] MEDS ORDERED: CEPH-459 PO (15:35)
[2016-04-17] MEDS ORDERED: DO NOT ADM ANY ANTICOAGULANT DRUGS XX PRN (15:40)
[2016-04-17 16:00] VITALS: BP 138/78; PULSE 58; RESP 18; TEMP 98.5; O2SAT 96
[2016-04-27] MEDS ORDERED: PERC5TAB12 PO (11:20)
[2016-05-01] MEDS ORDERED: GABA600T PO (14:55)
[2016-05-03] MEDS ORDERED: PERC5TAB12 PO (09:23)
[2016-05-10] MEDS ORDERED: ZOFR4TAB3 SL (14:58)
[2016-05-25] MEDS ORDERED: ZOFR4TAB3 SL (13:38)
[2016-05-25] MEDS ORDERED: PERC5TAB12 PO (13:38)
[2016-06-05] MEDS ORDERED: PERC5TAB12 PO (13:03)
[2016-06-05] MEDS ORDERED: CEPH-460 PO (13:03)
[2016-06-23] MEDS ORDERED: PERC5TAB12 PO (10:34)
== END 2016-04-17 21:42 | disposition home or self-care (01) | DRG 694 ==
LOC: NEPA 14:51 → NEDA 18:23 → N04B 21:22
PROVIDERS: ADMIT Hospitalist; ATTEND Hospitalist
PROC: BT141ZZ Fluoroscopy of Kidneys, Ureters and Bladder using Low Osmolar Contrast (ICD-10-PCS; 2016-04-17)
PROC: 0T9B70Z Drainage of Bladder with Drainage Device, Via Natural or Artificial Opening (ICD-10-PCS; 2016-04-17)
PROC: 0T788DZ Dilation of Bilateral Ureters with Intraluminal Device, Via Natural or Artificial Opening Endoscopic (ICD-10-PCS; principal; 2016-04-17 14:22)
DX: N13.2 Hydronephrosis with renal and ureteral calculous obstruction (principal); N17.9 Acute kidney failure, unspecified; E11.8 Type 2 diabetes mellitus with unspecified complications; Z99.81 Dependence on supplemental oxygen; K80.20 Calculus of gallbladder without cholecystitis without obstruction; K57.90 Diverticulosis of intestine, part unspecified, without perforation or abscess without bleeding; K44.9 Diaphragmatic hernia without obstruction or gangrene; F32.9 Major depressive disorder, single episode, unspecified; M19.042 Primary osteoarthritis, left hand; M19.041 Primary osteoarthritis, right hand; G47.33 Obstructive sleep apnea (adult) (pediatric); N40.0 Benign prostatic hyperplasia without lower urinary tract symptoms; E78.5 Hyperlipidemia, unspecified; F12.90 Cannabis use, unspecified, uncomplicated; Z85.820 Personal history of malignant melanoma of skin; Z96.651 Presence of right artificial knee joint
CPT/HCPCS: 71010; 74000; 74176; 74420; 76705; 80048; 80074; 80076; 81001; 82948; 83690; 83735; 85025; 93005; 96374; 96375; C1769; C2617; J0131; J1100; J1130; J1170; J1885; J2250; J2270; J2405; J2543; J3010; J7030; J7120; Q9967

== ENCOUNTER → 2016-05-03 | Day surgery (SDC) | payer OTHER ==
[~2016-05-03] VITALS: Ht 190.5 cm; Wt 128.8 kg
[~2016-05-03] MED LIST changes: +ACETAMINOPHEN 1000 MG/100 ML VIAL IV ONE; +CEPH-460 PO; +DO NOT ADM ANY ANTICOAGULANT DRUGS XX PRN; +FAMOTIDINE 20 MG/2 ML VIAL ONE; +GABA600T PO; +INSULIN HUMAN REGULAR 1,000 UNITS/10 ML VIAL SQ PRN; +LACTATED RINGER'S 1000 ML IV SCH; +METOPROLOL TARTRATE 25 MG TAB PO PRN; +MIDAZOLAM HCL 2 MG/2 ML VIAL ONE; +NEOSTIGMINE 3 MG/3 ML SYR IV ONE; +ONDANSETRON HCL 4 MG/2 ML VIAL IV PUSH PRN; +ONDANSETRON HCL 4 MG/2 ML VIAL ONE; +PERC5TAB12 PO; +PHENYLEPH/NS 1000 MCG/10 ML SYR IV ONE; -POTA20TA5 PO; +PROPOFOL 200 MG/20 ML AMP IV ONE; +SODIUM CHLORID 0.9% 500 ML IV SCH; +ZOFR4TAB3 SL; +ePHEDrine/NS 25 MG/5 ML SYR IV ONE; +fentaNYL CITRATE 250 MCG/5 ML AMP ONE; -glucometer; +oxyCODONE/ACETAMINOPHEN 5 MG/325 MG TAB PO PRN
[2016-05-03 06:28] VITALS: BP 118/55; PULSE 46; RESP 16; TEMP 97.6; O2SAT 97
--- NOTE | 2016-05-03 09:22 | PD.OP ---
Operative Report Date of Surgery: May 03, 2016 Preoperative Diagnosis: (1) Bilateral ureteral calculi Postoperative Diagnosis: (1) Bilateral ureteral calculi Bilateral ureteral calculi Procedure: Extracorporeal shockwave lithotripsy of bilateral ureteral calculi Anesthesia: General Surgeon: Rufus Osuna Mmd Unit Teacher(s): None Operation and Findings: Indication for procedure: Case of a pleasant 60-year-old gentleman with obstructing bilateral ureteral calculi who is status post bilateral ureteral stent placement earlier this month. Presents now to undergo bilateral extracorporeal shockwave lithotripsy. Procedure in detail: Patient was brought to the operating room suite and placed supine on the lithotripsy table. Present placed under general anesthesia. After appropriate timeout was undertaken her proceeded with localizing the patient's right ureteral calculus with fluoroscopy. He then underwent extracorporeal shockwave lithotripsy utilizing the Lemus piezolith 3000 device. The stone was treated with 3000 shocks with a maximum power level setting of 20. Next the lithotripsy machine was repositioned and the patient's left ureteral stone localized. The left stone was also treated with 3000 shocks with a maximum power level setting of 20. Both ureteral stones appeared intact at the conclusion of the procedure. The patient tolerated the procedure well and was transferred to the PACU in satisfactory condition. Rufus Osuna MD May 03, 2016 09:22
[2016-05-03 10:00] VITALS: BP 129/72; PULSE 46; RESP 18; TEMP 97.3; O2SAT 97
== END | disposition home or self-care (01) ==
LOC: HSDC 05:29
PROVIDERS: ATTEND Urology
DX: N20.1 Calculus of ureter (principal)
CPT/HCPCS: 00873; 50590; J0131; J2250; J2370; J2405; J2710; J3010; J7120

== ENCOUNTER → 2016-06-05 | Day surgery (SDC) | payer OTHER ==
[~2016-06-05] VITALS: Ht 190.5 cm; Wt 129.9 kg
[~2016-06-05] MED LIST changes: +*morphine SULFATE 8 MG/ML PERIprocedure ONLY ONE; -ACETAMINOPHEN 1000 MG/100 ML VIAL IV ONE; +CHLORHEXIDINE GLUCONATE 2 % 1 PACK (2 CLOTHS) TOPICAL PRN; +DO NOT ADM ANY ANTICOAGULANT DRUGS PRN; -DO NOT ADM ANY ANTICOAGULANT DRUGS XX PRN; +IOHEXOL 300 MG/ML 50 ML BTL (for RAD DIAG) ONE; +LACTATED RINGER'S 1000 ML INJ 1,000 ML IV ONE; +LACTATED RINGER'S 1000 ML IV PRN; -LACTATED RINGER'S 1000 ML IV SCH; +MORPHINE SULFATE 4 MG/ML INJ ONE; -NEOSTIGMINE 3 MG/3 ML SYR IV ONE; +ONDANSETRON HCL 4 MG/2 ML VIAL IV PUSH ONE; -ONDANSETRON HCL 4 MG/2 ML VIAL ONE; -PHENYLEPH/NS 1000 MCG/10 ML SYR IV ONE; +POVIDONE IODINE 5% (ANTISEPSIS KIT) 4 APPLICATIONS EACH NARE PRN; +SODIUM CHLORID 0.9% 500 ML IV PRN; -SODIUM CHLORID 0.9% 500 ML IV SCH; -ZETI10TA5 PO; +ceFAZolin 2 GM PREMIX 50 ML IV SCH; +ceFAZolin 2 GM PREMIX 50 ML ONE; -ePHEDrine/NS 25 MG/5 ML SYR IV ONE
[2016-06-05 10:07] VITALS: BP 139/82; PULSE 55; RESP 20; TEMP 97.9; O2SAT 94
[2016-06-05 10:32] LABS: AUTOMATED NEUTROPHIL # 5.9 TH/MM3 (1.8-7.7); BASOPHIL # 0.1 TH/MM3 (0-0.2); EOSINOPHIL # 0.3 TH/MM3 (0-0.4); EOSINOPHIL % 3.2 % (0.0-4.0); HEMATOCRIT 38.3 % (39.0-51.0); HEMO FLAGS DIFF FINAL; LYMPH % 25.6 % (9.0-44.0); LYMPHOCYTE # 2.4 TH/MM3 (1.0-4.8); MEAN CELL VOLUME 87.6 FL (80.0-100.0); MEAN CORPUSCULAR HEMOGLOBIN 30.5 PG (27.0-34.0); MEAN CORPUSCULAR HGB CONC 34.9 % (32.0-36.0); MONO % 6.7 % (0.0-8.0); NEUT % 63.5 % (16.0-70.0); PLATELET COUNT 209 TH/MM3 (150-450); RED BLOOD COUNT 4.37 MIL/MM3 (4.50-5.90); RED CELL DISTRIBUTION WIDTH 12.5 % (11.6-17.2); WHITE BLOOD COUNT 9.3 TH/MM3 (4.0-11.0)
--- NOTE | 2016-06-05 13:16 | PD.OP ---
Operative Report Date of Surgery: Jun 05, 2016 Preoperative Diagnosis: (1) Bilateral ureteral calculi Postoperative Diagnosis: (1) Bilateral ureteral calculi Procedure: Cystoscopy, bilateral ureteral stent removal, bilateral retrograde pyelograms, left ureteroscopy with stone extraction, right ureteroscopy with laser lithotripsy/ extraction of stone fragments and bilateral ureteral catheter placement. Anesthesia: General Surgeon: Rufus Osuna Nuclear Medicine Tech(s): None Operation and Findings: Indication for procedure: Case of a pleasant 60-year-old gentleman with history bilateral ureteral calculi who is status post bilateral stent placement and subsequent shockwave lithotripsy. Recent KUB study demonstrated persistence of the bilateral ureteral calculi and he presents now for endoscopic management. Operative procedure in detail. Patient was brought to the operating suite and placed supine on the cystoscopy table. He was then placed under general anesthesia. He was then repositioned in the dorsal lithotomy position and prepped and draped in normal sterile fashion. After appropriate timeout was undertaken I proceeded with cystoscopic evaluation utilizing the rigid cystoscope with the 20 Martiniquais sheath and 30 lens. The distal loops of the previously placed bilateral ureteral catheters precluded visualized. I next proceeded with grasping the loop of the left ureteral stent flexible forceps and brought this out to the penile meatus. A sensor 0.35 wire was advanced through the stent up into the left kidney and the stent removed over the wire. The cystoscope was withdrawn and the wire stricture sterile drape with hemostat. I then proceeded with ureteroscopic evaluation utilizing the ACKY self dilating ureteroscope. The scope was easily advanced up the left ureter up to the point of the Rissa 6 mm stone involving the proximal ureter. This was grasped with the 2.4 Martiniquais stone basket and extracted under direct vision. While removing the stone did break up this several more pieces and these pieces settled within the urinary bladder upon basket removal. The wire was temporarily left on the patient's left side and I focused my attention towards the right side. The cystoscope was reintroduced and the right ureteral stent was grasped with flexible forceps and brought out the meatus. Again, the sensor 0.35 wire was advanced through the right ureteral stent all the way up into the right renal pelvis and the stent removed over the wire. The cystoscope was withdrawn and the wire secured to a sterile drape with hemostat. I used the ACMI self dilating ureteroscope and performed ureteroscopy on the patient's right side. I was able to easily passed the scope up the patient's right ureter up to the point of the obstructing stone. This stone appeared more intact and much larger and required use of the holmium laser to break up into smaller pieces. The 200 laser fiber was utilized to break up the stone into multiple small pieces. Next the 2.4 Martiniquais stone basket was utilized and several of the larger pieces which were extracted under direct vision was sent off for chemical analysis. I repeated ureteroscopy and no significant sized stone fragments were left behind. I then withdrew the ureteroscope was again used to cystoscope and bilateral 6 Martiniquais open-ended ureteral catheters were advanced under both cystoscopic and fluoroscopic guidance up the ureters without difficulty. Bilateral retropyelogram studies were performed to confirm that the catheters were indeed within the collecting system. The cystoscope was withdrawn and a 16 Martiniquais 10 cc Mcclellan catheter was placed. Both ureteral catheters were anchored to the Mcclellan via a connector. Then utilized the Adiel syringe to irrigate out the bladder. All 3 catheters were then placed to gravity drainage. The patient tolerated the procedures without compensations and was transferred to the PACU in satisfactory condition. Rufus Osuna MD Jun 05, 2016 13:16
[2016-06-05 15:05] VITALS: BP 120/75; PULSE 50; RESP 16; TEMP 98.3; O2SAT 95
== END | disposition home or self-care (01) ==
LOC: HSDC 09:33
PROVIDERS: ATTEND Urology
DX: N20.1 Calculus of ureter (principal); E11.9 Type 2 diabetes mellitus without complications; G47.30 Sleep apnea, unspecified
CPT/HCPCS: 00918; 52356; 74420; 82370; 85025; 88300; C1769; J2250; J2270; J2405; J3010; J7120; Q9967; J0690